=== PATIENT | male | born 1970 | race Caucasian/White ===

== ENCOUNTER 2022-06-14 17:44 | Emergency (ER) | payer SELFPAY ==
[2022-06-14 18:01] VITALS: BP 137/79; PULSE 75; RESP 16; TEMP 98.2; BMI 27.3
[2022-06-14] MEDS ORDERED: ACETAMINOPHEN 1000 MG/100 ML BAG IVPB ONE (19:40)
[2022-06-14] MEDS ORDERED: MECLIZINE HCL 25 MG TABLET (FP) PO ONE (19:41)
[2022-06-14] MEDS ORDERED: LACTATED RINGERS SOLUTION 1,000 ML/1,000 ML INFUS.BAG IV SCH (19:45)
[2022-06-14] MEDS ORDERED: ACETAMINOPHEN INJECTION 100 ML IVPB ONE (20:54)
[2022-06-14] MEDS ORDERED: MECLIZINE HCL 25 MG TABLET (FP) ONE (20:54)
[2022-06-14] MEDS ORDERED: ONDANSETRON 4 MG/2 ML VIAL ONE (20:54)
[2022-06-14 20:58] LABS: BASO % 0.5 % (0-2.0); EOS % 2.9 % (0-4.5); HEMATOCRIT 43.1 % (35.4-49); HEMOGLOBIN 14.4 GM/dL (11.7-16.9); LYMPH % 30.7 % (8-40); MCH 29.8 pg (25.7-33.7); MCHC 33.4 g/dl (32.0-35.9); MEAN PLT VOLUME 8.3 fl (7.5-11.1); MONO % 5.8 % (3.8-10.2); NEUT % 60.1 % (42.8-82.8); PLATELET COUNT 236 10^3/uL (134-434); RBC 4.84 M/mm3 (4.00-5.60); RDW 14.6 % (11.9-15.9); WHITE BLOOD COUNT 6.4 K/mm3 (4.0-10.0)
[2022-06-14 21:09] LABS: INR 0.99 (0.83-1.09); PROTHROMBIN TIME (PATIENT) 11.5 SEC (9.7-13.0)
[2022-06-14 21:12] LABS: ACTIVATED PTT 29.1 SECONDS (25.2-36.5)
[2022-06-14 21:23] LABS: CALCIUM 9.1 mg/dL (8.5-10.1)
[2022-06-14 21:25] LABS: ALBUMIN 3.8 g/dl (3.4-5.0); BLOOD UREA NITROGEN 13.5 mg/dL (7-18)
[2022-06-14 21:28] LABS: CREATININE 0.7 mg/dL (0.55-1.3)
[2022-06-14 21:29] LABS: BILIRUBIN,TOTAL 0.6 mg/dL (0.2-1); TOT PROT 7.3 g/dl (6.4-8.2)
== END 2022-06-14 22:34 | disposition home or self-care (01) ==
LOC: JER 17:44
PROC: 3E033GC Introduction of Other Therapeutic Substance into Peripheral Vein, Percutaneous Approach (ICD-10-PCS; principal; 2022-06-14)
DX: R42 Dizziness and giddiness (principal)
CPT/HCPCS: 36415; 71046-TC-FY; 80053; 84484; 85025; 85610; 85730; 93005; 93010; 99285-25